=== PATIENT | female | born 1950 | race Caucasian/White ===

== ENCOUNTER → 2023-05-31 12:00 | Outpatient (CLI) | payer MEDICARE, OTHER, SELFPAY ==
--- NOTE | 2023-05-31 | DI.ECHO.S_ITS ---
[place] [facility]---------+ [facility] +---------+ : : [address] : [address] : : : : [id number] : : : : Phone: [phone] +---------+ Echocardiogram Report + + :Name: LINNETTE LÓPEZ Study Date: 05/31/2023 Height: 65 in : :[facility] ReadingLocation: Weight: 180 lb : : Gender: Female BSA: 1.9 m2 : :: 1950 Age: 72 yrs BP: 127/84 mmHg: :Reason For Study: PULMONARY EMBOLISM WITH ACUTE COR PULMONALE : :Ordering Physician: BUSTER, : :SUMMER Performed By: Amie Kohli : :Referring: CRISSY GALICIA : + + Interpretation Summary Limited Echo: The right ventricle is normal in size with low normal function. There is mild tricuspid regurgitation. The right ventricular systolic pressure is estimated to be at least 40 mmHg based on an estimated right atrial pressure of 3 mm Hg. Procedure: Images were not obtained from all of the standard acoustic windows due to the limited scope of the study. The study quality was technically adequate. There is no prior echocardiogram noted for this patient. The patient was in sinus rhythm with heart rates between 72-86 bpm during the exam. Left Ventricle: The left ventricle is normal in size and wall thickness. Proximal septal thickening is noted. The ejection fraction is estimated to be 60-65%. Right Ventricle: The right ventricle is normal size. Right ventricular systolic function is at the lower limits of normal. Tricuspid Valve: The tricuspid valve leaflets are thin and pliable. There is mild tricuspid regurgitation. The right ventricular systolic pressure is estimated to be at least 40 mmHg based on an estimated right atrial pressure of 3 mm Hg. Pericardium/ Pleura There is no pericardial effusion. There is no pleural effusion. MMode/2D Measurements & Calculations LVIDd: 3.7 cm RA long axis: 4.8 cm LVIDs: 2.2 cm RA area: 16.6 cm2 FS: 40.6 % RA vol: 49.4 ml IVSd: 1.3 cm RA : 26.1 ml/m2 LVPWd: 0.96 cm IVC diam: 1.7 cm LV turner. diameter/BSA (cm/m^2): 2.0 LV sys. diameter/BSA (cm/m^2): 1.2 RVD1 (basal): 3.4 cm RVD2 (mid): 2.7 cm TAPSE: 1.9 cm Doppler Measurements & Calculations TR max eric: 306.0 cm/sec TR max P.4 mmHg PA V2 max: 105.2 cm/sec PA V2 mean: 70.5 cm/sec PA mean P.3 mmHg PA pr(Accel): 22.5 mmHg Reading Physician:05:52 PM
== END ==
PROVIDERS: Referring Provider Internal Medicine Cardiovascular Disease; Visit Provider Internal Medicine Cardiovascular Disease
DX: I26.09 Other pulmonary embolism with acute cor pulmonale (principal); I07.1 Rheumatic tricuspid insufficiency
CPT/HCPCS: 93307